=== PATIENT | female | born 1960 | race African-American/Black ===

== ENCOUNTER 2019-06-02 19:35 | Inpatient (IN) | payer MEDICARE, MEDICAID ==
[~2019-06-02] VITALS: Ht 160 cm; Wt 86.9 kg
[2019-06-02] MEDS ORDERED: ONDANSETRON ODT 4 MG TAB PO ONE (20:00)
[2019-06-02 21:14] LABS: Basophils # (auto) 0 uL; Basophils % (auto) 0.7 % (0.0-2.0); Eosinophils # (auto) 0 uL; Eosinophils % (auto) 0.4 % (0.0-7.0); Hematocrit 46.7 % (36.0-46.0); Hemoglobin 15.5 g/dL (12.2-16.2); Lymphocytes # (auto) 0.5 uL; Lymphocytes % (auto) 7.6 % (10.0-50.0); Mean Corpuscular Hemoglobin 28.6 pg (28.0-32.0); Mean Corpuscular Hgb Conc. 33.2 g/dL (32.0-36.0); Mean Corpuscular Volume 86.1 fL (80.0-100.0); Monocytes # (auto) 0.4 uL; Monocytes % (auto) 5.4 % (0.0-12.0); Neutrophils # (auto) 5.8 uL; Neutrophils % (auto) 85.9 % (37.0-80.0); Nucleated Red Blood Cells % 0.1 %; Platelet Count (auto) 265 10^3/uL (140-450); Red Blood Cells 5.42 10^6/uL (4.0-5.20); Red Cell Distribution Width 14.1 % (11.8-14.3); White Blood Cell 6.8 10^3/uL (4.4-10.8)
[2019-06-02 21:28] LABS: Albumin 3.8 g/dL (3.4-5.0); Calcium 9.1 mg/dL (8.5-10.1)
[2019-06-02 21:31] LABS: BUN/Creatinine Ratio 18.3; Bilirubin, Total 1.2 mg/dL (0.2-1.0); Total Protein 8.1 g/dL (6.4-8.2)
[2019-06-02] MEDS ORDERED: cloNIDine HCL 0.1 MG TAB PO ONE (21:45)
[2019-06-02 21:47] LABS: Potassium 2.9 mmol/L (3.5-5.1)
[2019-06-03] MEDS ORDERED: ONDANSETRON HCL 4 MG/2 ML VIAL IV ONE (03:45)
[2019-06-03] MEDS ORDERED: POTASSIUM CHL 20 Meq TABLET PO ONE (03:45)
[2019-06-03] MEDS ORDERED: FAMOTIDINE 20 MG TAB PO ONE (03:45)
[2019-06-03 03:57] LABS: Amylase 44 U/L (25-115); Lipase 51 U/L (73-393)
[2019-06-03] MEDS ORDERED: SODIUM CHLORIDE 0.9% 1,000 ML IV ONE (04:00)
[2019-06-03] MEDS: cefTRIAXone 1GM/50ML D5W 50 ML IV SCH (08:48)
[2019-06-03] MEDS: ACETAMINOPHEN 325 MG TAB PO PRN ×2 (09:00→20:43)
[2019-06-03] MEDS: FAMOTIDINE 20 MG TAB PO SCH ×2 (10:16→22:49)
[2019-06-03] MEDS: HCTZ 25 MG TAB PO SCH (10:17)
[2019-06-03 11:18] LABS: Urine Bacteria FEW /hpf (None Seen); Urine Blood Negative /uL (Negative); Urine Hyaline Cast FEW /lpf (0 - 2); Urine Mucus FEW (None Seen); Urine Specific Gravity 1.033 (1.001-1.035); Urine WBC 2 /hpf (0 - 5)
[2019-06-03 11:22] LABS: Amphetamine Screen, Urine NEGATIVE (NEGATIVE); Benzodiazephine Screen, Urine NEGATIVE (NEGATIVE); Cannabinoid Screen, Urine NEGATIVE (NEGATIVE)
[2019-06-03 11:24] LABS: Barbiturate Scree,Urine NEGATIVE (NEGATIVE); Cocaine Screen, Urine NEGATIVE (NEGATIVE); Opiate Scree,Urine NEGATIVE (NEGATIVE); Phencyclidine Screen, Urine NEGATIVE (NEGATIVE)
[2019-06-03] MEDS: metroNIDAZOLE 500MG/100ML 100 ML IV SCH ×2 (14:20→22:49)
[2019-06-03] MEDS: hydrALAZINE HCL 20 MG/ML VL IV PRN ×2 (20:19→22:49)
--- NOTE | 2019-06-03 21:00 | NUR ---
ADMITTED PATIENT FROM THE ER, AAOX4. NO DISTRESS NOTED. INTRODUCED MYSELF TO THE PATIENT. COMPLAINED OF MILD ABDOMINAL PAIN AND NAUSEA. ROUTINE ADMISSION DONE. POCS DISCUSSED WITH PATIENT AND SHOWED UNDERSTANDING. BED KEPT ON LOWEST POSITION. SIDE RAILS UP. CALL LIGHT/TABLE IN REACH. KEPT COMFORTABLE.
[2019-06-03 22:00] VITALS: BP 177/84
[2019-06-03] MEDS: HYDROcodone-ACET 5/325MG TAB PO PRN (22:50)
[2019-06-03] MEDS: TEMAZEPAM 15 MG CAP PO PRN (22:50)
[2019-06-03] MEDS: ONDANSETRON HCL 4 MG/2 ML VIAL IV PRN (22:50)
[2019-06-04] VITALS (8 sets, daily range): BP systolic 140–177; BP diastolic 63–109
[2019-06-04] MEDS: ONDANSETRON HCL 4 MG/2 ML VIAL IV PRN (02:34)
[2019-06-04] MEDS: metroNIDAZOLE 500MG/100ML 100 ML IV SCH (05:42)
--- NOTE | 2019-06-04 06:08 | NUR ---
ON BED, ASLEEP. STABLE. NO DISTRESS NOTED. FOR MORE CARE AND MANAGEMENT.
--- NOTE | 2019-06-04 07:15 | NUR ---
Opening Shift Note Assumed care of patient, awake and alert. No S/S of distress or SOB. Pt denies any pain at this time,no nausea no vomiting. Bed in lowest and locked position with side rails up x2 and call light within reach. Instructed on POC and to call for assist PRN, will continue to monitor for changes Q1hr and PRN.family at bedside visiting.
[2019-06-04 07:38] LABS: Hematocrit 41.4 % (36.0-46.0); Hemoglobin 13.7 g/dL (12.2-16.2); Mean Corpuscular Hemoglobin 28.8 pg (28.0-32.0); Mean Corpuscular Hgb Conc. 33.1 g/dL (32.0-36.0); Mean Corpuscular Volume 87.1 fL (80.0-100.0); Platelet Count (auto) 179 10^3/uL (140-450); Red Blood Cells 4.76 10^6/uL (4.0-5.20); Red Cell Distribution Width 14.2 % (11.8-14.3); White Blood Cell 9.9 10^3/uL (4.4-10.8)
[2019-06-04 08:01] LABS: Basophils % (manual) 0 (0.0-2.0); Blast Cells 0; Eosinophils % (manual) 0 (0-7); Metamyelocytes % 0; Myelocytes % 0; Promyelocytes % 0; Reactive Lymphocytes 0
[2019-06-04 08:02] LABS: BUN/Creatinine Ratio 15.7; Calcium 8.3 mg/dL (8.5-10.1)
[2019-06-04 08:18] LABS: Potassium 2.7 mmol/L (3.5-5.1)
[2019-06-04 09:07] LABS: Band Neutrophils % (manual) 6; Lymphocytes % (manual) 2 (10.0-50.0); Monocytes % (manual) 5 (0-12)
[2019-06-04] MEDS: cefTRIAXone 1GM/50ML D5W 50 ML IV SCH (10:30)
--- NOTE | 2019-06-04 10:30 | NUR ---
here made aware of potassium level of 2.7
[2019-06-04] MEDS: HCTZ 25 MG TAB PO SCH (10:31)
[2019-06-04] MEDS: FAMOTIDINE 20 MG TAB PO SCH ×2 (10:31→21:42)
[2019-06-04] MEDS: D5W/SOD CHL 0.45%/KCL 40MEQ 1,000 ML IV SCH ×2 (13:16→21:42)
[2019-06-04 13:45] LABS: Calcium 7.9 mg/dL (8.5-10.1); Potassium 3.2 mmol/L (3.5-5.1)
[2019-06-04 13:47] LABS: BUN/Creatinine Ratio 11.7
--- NOTE | 2019-06-04 20:10 | NUR ---
RECEIVED PATIENT IN BED, AAOX4. NO DISTRESS NOTED. INTRODUCED MYSELF TO THE PATIENT. COMPLAINED OF MILD HEADACHE. WILL MEDICATE PATIENT. LEFT AC IV ACCESS IS INFILTRATED. ELEVATED LEFT ARM ON A PILLOW. STARTED A NEW IV ACCESS ON THE RIGHT HAND, GAUGE 22. BENIGN AND PATENT. POCS DISCUSSED WITH PATIENT AND SHOWED UNDERSTANDING. BED KEPT ON LOWEST POSITION. SIDE RAILS UP. CALL LIGHT/TABLE IN REACH. KEPT COMFORTABLE.
[2019-06-04] MEDS: HYDROcodone-ACET 5/325MG TAB PO PRN (21:42)
[2019-06-04] MEDS: TEMAZEPAM 15 MG CAP PO PRN (21:43)
[2019-06-04] MEDS: hydrALAZINE HCL 20 MG/ML VL IV PRN (22:04)
[2019-06-05] VITALS (7 sets, daily range): BP systolic 131–176; BP diastolic 71–96
--- NOTE | 2019-06-05 06:38 | NUR ---
ON BED, ASLEEP. STABLE. NO DISTRESS NOTED. FOR MORE CARE AND MANAGEMENT.
--- NOTE | 2019-06-05 07:15 | NUR ---
Opening Shift Note Assumed care of patient, awake and alert. No S/S of distress or SOB. C/O headache at this time,no nausea no vomiting,no diarrhea. Bed in lowest and locked position with side rails up x2 and call light within reach. Instructed on POC and to call for assist PRN, will continue to monitor for changes Q1hr and PRN.family at bedside visiting.
[2019-06-05] MEDS: D5W/SOD CHL 0.45%/KCL 40MEQ 1,000 ML IV SCH (08:30)
[2019-06-05] MEDS: ACETAMINOPHEN 325 MG TAB PO PRN (08:46)
[2019-06-05] MEDS: HCTZ 25 MG TAB PO SCH (09:32)
[2019-06-05] MEDS: FAMOTIDINE 20 MG TAB PO SCH (09:32)
--- NOTE | 2019-06-05 11:00 | NUR ---
MD VISIT HERE TO SEE AND EXAMINED PATIENT,RECEIVED ORDER FOR DISCHARGE
[2019-06-05] MEDS ORDERED: HYDR-4833 PO (11:15)
[2019-06-05] MEDS ORDERED: POTA1TAB64 PO (11:15)
[2019-06-05] MEDS ORDERED: CLON0.1T PO (11:15)
[2019-06-05] MEDS ORDERED: HYDR25TA4 PO (11:15)
[2019-06-05] MEDS ORDERED: ZOLP10TA PO (11:15)
--- NOTE | 2019-06-05 12:15 | NUR ---
Discharge instructions given as ordered. Encourage to follow up with PMD as instructed. All questions and concerns addressed. Patient verbalized understanding. Medication reconciliation form completed and copy given to patient. IV removed with catheter intact, pressure dressing applied, Patient ambulated stated vehicle is at ER parking stated drove self to ER, with all personal belongings, ,No distress noted at time of departure.
== END 2019-06-05 13:51 | disposition home or self-care (01) | DRG 392 ==
LOC: ER 19:38 → OVERFLOW 19:39 → CENTRAL 06-03 21:58
PROVIDERS: ADMIT Nurse Practitioner; ATTEND Internal Medicine Pulmonary Disease
DX: K52.9 Noninfective gastroenteritis and colitis, unspecified (principal); E87.0 Hyperosmolality and hypernatremia; E86.0 Dehydration; E87.6 Hypokalemia; K57.90 Diverticulosis of intestine, part unspecified, without perforation or abscess without bleeding; Z90.49 Acquired absence of other specified parts of digestive tract; I10 Essential (primary) hypertension
CPT/HCPCS: 36415; 74176; 80048; 80053; 80307; 81001; 82150; 83690; 85007; 85025; 85027; 93005; 94761; 96361; 96365; 96367; 96375; G0378; J0696; J2405; J3490; Q0162

== ENCOUNTER 2019-06-13 13:14 | Emergency (ER) | payer MEDICARE, MEDICAID ==
[~2019-06-13] VITALS: Ht 160 cm; Wt 81.6 kg
[~2019-06-13 13:14] MED LIST: CLON0.1T PO; HYDR-4833 PO; HYDR25TA4 PO; POTA1TAB64 PO; ZOLP10TA PO
[2019-06-13 13:33] VITALS: BP 130/76
[2019-06-13 13:46] LABS: Basophils # (auto) 0.1 uL; Basophils % (auto) 2.1 % (0.0-2.0); Eosinophils # (auto) 0.1 uL; Eosinophils % (auto) 2.7 % (0.0-7.0); Hematocrit 40.8 % (36.0-46.0); Hemoglobin 13.2 g/dL (12.2-16.2); Lymphocytes # (auto) 1.5 uL; Lymphocytes % (auto) 35.2 % (10.0-50.0); Mean Corpuscular Hemoglobin 28.4 pg (28.0-32.0); Mean Corpuscular Hgb Conc. 32.4 g/dL (32.0-36.0); Mean Corpuscular Volume 87.6 fL (80.0-100.0); Monocytes # (auto) 0.4 uL; Monocytes % (auto) 9.6 % (0.0-12.0); Neutrophils # (auto) 2.2 uL; Neutrophils % (auto) 50.4 % (37.0-80.0); Nucleated Red Blood Cells % 0.1 %; Platelet Count (auto) 292 10^3/uL (140-450); Red Blood Cells 4.66 10^6/uL (4.0-5.20); Red Cell Distribution Width 14.5 % (11.8-14.3); White Blood Cell 4.3 10^3/uL (4.4-10.8)
[2019-06-13 13:57] LABS: Urine Bacteria NONE SEEN /hpf (None Seen); Urine Blood Negative /uL (Negative); Urine Mucus FEW (None Seen); Urine Specific Gravity 1.017 (1.001-1.035); Urine WBC 1 /hpf (0 - 5)
[2019-06-13 14:09] LABS: Alanine Aminotransferase 42 U/L (13-56); Albumin 3.4 g/dL (3.4-5.0); Anion Gap 6 (5-15); Aspartate Aminotransferase 23 U/L (15-37); Blood Urea Nitrogen 22 mg/dL (7-18); Calcium 8.8 mg/dL (8.5-10.1); Carbon Dioxide 29 mmol/L (21-32); Chloride 107 mmol/L (98-107); Glucose 83 mg/dL (74-106); Potassium 3.8 mmol/L (3.5-5.1); Sodium 142 mmol/L (136-145)
[2019-06-13 14:14] LABS: Alkaline Phosphatase 59 U/L (45-117); BUN/Creatinine Ratio 22.9; Bilirubin, Total 0.3 mg/dL (0.2-1.0); GFR African American 77 mL/min; GFR Non-African American 64 mL/min; Total Protein 7.1 g/dL (6.4-8.2)
[2019-06-13] MEDS ORDERED: metroNIDAZOLE 500MG/100ML 100 ML IV ONE (15:00)
[2019-06-13] MEDS ORDERED: MORPHINE SULFATE 4 MG/ML SYR/VIAL IV ONE (15:00)
[2019-06-13] MEDS ORDERED: ONDANSETRON HCL 4 MG/2 ML VIAL IV ONE (15:00)
[2019-06-13] MEDS ORDERED: KETOROLAC TROMETH 15 mg/ml 1ML VL IV ONE (16:45)
== END 2019-06-13 15:41 | disposition home or self-care (01) ==
LOC: ER 13:17
DX: K52.9 Noninfective gastroenteritis and colitis, unspecified (principal); Z88.5 Allergy status to narcotic agent; Z79.899 Other long term (current) drug therapy; Z90.49 Acquired absence of other specified parts of digestive tract
CPT/HCPCS: 36415; 74176; 80053; 81001; 84484; 85025; 93005; 96365; 96375; 99284; J1885; J2405; J3490

== ENCOUNTER 2019-06-19 06:27 | Emergency (ER) | payer MEDICARE, MEDICAID ==
[~2019-06-19] VITALS: Ht 160 cm; Wt 81.6 kg
[2019-06-19] MEDS ORDERED: SODIUM CHLORIDE 0.9% 1,000 ML IV ONE (07:23)
[2019-06-19] MEDS ORDERED: KETOROLAC TROMETH 30 MG/ML 1ML VIAL IV ONE (07:30)
[2019-06-19] MEDS ORDERED: PROMETHAZINE HCL 25 MG/ML 1ML IV PRN (07:30)
[2019-06-19 08:13] LABS: Basophils # (auto) 0.1 uL; Basophils % (auto) 1.6 % (0.0-2.0); Eosinophils # (auto) 0.2 uL; Eosinophils % (auto) 3.5 % (0.0-7.0); Hematocrit 40.8 % (36.0-46.0); Hemoglobin 13.4 g/dL (12.2-16.2); Lymphocytes # (auto) 1.6 uL; Lymphocytes % (auto) 37.1 % (10.0-50.0); Mean Corpuscular Hemoglobin 28.9 pg (28.0-32.0); Mean Corpuscular Hgb Conc. 32.9 g/dL (32.0-36.0); Mean Corpuscular Volume 87.6 fL (80.0-100.0); Monocytes # (auto) 0.4 uL; Monocytes % (auto) 8.3 % (0.0-12.0); Neutrophils # (auto) 2.1 uL; Neutrophils % (auto) 49.5 % (37.0-80.0); Nucleated Red Blood Cells % 0.1 %; Platelet Count (auto) 254 10^3/uL (140-450); Red Blood Cells 4.65 10^6/uL (4.0-5.20); Red Cell Distribution Width 14.7 % (11.8-14.3); White Blood Cell 4.3 10^3/uL (4.4-10.8)
[2019-06-19] MEDS ORDERED: IOHEXOL 300 MG/ML 100ML BOTTLE IJ ONE (08:19)
[2019-06-19 08:29] LABS: Potassium 3.3 mmol/L (3.5-5.1)
[2019-06-19 08:38] LABS: Albumin 3.4 g/dL (3.4-5.0); BUN/Creatinine Ratio 25.3; Bilirubin, Total 0.7 mg/dL (0.2-1.0); Magnesium 2.5 mg/dL (1.6-2.6); Total Protein 7.4 g/dL (6.4-8.2)
[2019-06-19] MEDS ORDERED: LABETALOL HCL 5 MG/ML ML 20ML VIAL IV ONE (10:30)
[2019-06-19 10:52] LABS: Urine Bacteria NONE SEEN /hpf (None Seen); Urine Blood Negative /uL (Negative); Urine Specific Gravity 1.017 (1.001-1.035); Urine WBC <1 /hpf (0 - 5)
[2019-06-19 11:07] VITALS: BP 156/89
== END 2019-06-19 11:27 | disposition home or self-care (01) ==
LOC: ER 06:36
DX: K59.8 Other specified functional intestinal disorders (principal); E87.6 Hypokalemia; E44.1 Mild protein-calorie malnutrition; I10 Essential (primary) hypertension; Z68.31 Body mass index [BMI] 31.0-31.9, adult; Z90.49 Acquired absence of other specified parts of digestive tract; Z88.6 Allergy status to analgesic agent
CPT/HCPCS: 36415; 71046; 74177; 80053; 81001; 83690; 83735; 84443; 85025; 93005; 96374; 96375; 99284; J1885; J2550; J7030; Q9967

== ENCOUNTER 2020-02-05 17:23 | Emergency (ER) | payer MEDICARE, MEDICAID ==
[~2020-02-05] VITALS: Ht 160 cm; Wt 84.8 kg
[2020-02-05] MEDS ORDERED: SODIUM CHLORIDE 0.9% 1,000 ML IVB ONE (18:04)
[2020-02-05 18:17] LABS: Basophils # (auto) 0.1 10 ^3/uL (0-0.2); Basophils % (auto) 1.4 % (0.0-2.0); Eosinophils # (auto) 0.2 10 ^3/uL (0-0.8); Hematocrit 41.6 % (36.0-46.0); Lymphocytes # (auto) 1.5 10 ^3/uL (0.4-5.4); Lymphocytes % (auto) 42.9 % (10.0-50.0); Mean Corpuscular Hemoglobin 28.9 pg (28.0-32.0); Mean Corpuscular Hgb Conc. 33.7 g/dL (32.0-36.0); Mean Corpuscular Volume 85.9 fL (80.0-100.0); Monocytes # (auto) 0.3 10 ^3/uL (0-1.3); Monocytes % (auto) 7.4 % (0.0-12.0); Neutrophils # (auto) 1.5 10 ^3/uL (1.6-8.6); Neutrophils % (auto) 42.3 % (37.0-80.0); Nucleated Red Blood Cells % 0.1 %; Platelet Count (auto) 220 10^3/uL (140-450); Red Blood Cells 4.84 10^6/uL (4.0-5.20); Red Cell Distribution Width 14.1 % (11.8-14.3); White Blood Cell 3.6 10^3/uL (4.4-10.8)
[2020-02-05 18:22] LABS: Urine Bacteria NONE SEEN /hpf (None Seen); Urine Blood Negative /uL (Negative); Urine Specific Gravity 1.009 (1.001-1.035); Urine WBC <1 /hpf (0 - 5)
[2020-02-05 18:33] LABS: Albumin 3.6 g/dL (3.4-5.0); Anion Gap 6 (5-15); Blood Urea Nitrogen 19 mg/dL (7-18); Calcium 8.6 mg/dL (8.5-10.1); Carbon Dioxide 30 mmol/L (21-32); Chloride 103 mmol/L (98-107); Glucose 82 mg/dL (74-106); Sodium 139 mmol/L (136-145)
[2020-02-05 18:35] LABS: Magnesium 1.8 mg/dL (1.6-2.6)
[2020-02-05 18:39] LABS: Alanine Aminotransferase 25 U/L (13-56); Alkaline Phosphatase 76 U/L (45-117); Aspartate Aminotransferase 20 U/L (15-37); BUN/Creatinine Ratio 16.8; Bilirubin, Total 0.6 mg/dL (0.2-1.0); GFR African American 64 mL/min; GFR Non-African American 53 mL/min; Total Protein 7.6 g/dL (6.4-8.2)
[2020-02-05 18:42] LABS: Potassium 2.9 mmol/L (3.5-5.1)
[2020-02-05] MEDS ORDERED: ONDANSETRON HCL 4 MG/2 ML VIAL IV ONE (18:45)
[2020-02-05] MEDS ORDERED: MEPERIDINE HCL (25 MG/ML) 1ML VIAL IV ONE (18:45)
[2020-02-05] MEDS ORDERED: POTASSIUM CHL 20 Meq TABLET PO ONE ×2 (19:45)
[2020-02-05 22:00] VITALS: BP 169/81
== END 2020-02-05 22:41 | disposition home or self-care (01) ==
LOC: ER 17:23
DX: K59.00 Constipation, unspecified (principal); E87.6 Hypokalemia; I10 Essential (primary) hypertension; Z90.49 Acquired absence of other specified parts of digestive tract; Z88.6 Allergy status to analgesic agent
CPT/HCPCS: 36415; 71045; 74176; 80053; 81001; 83690; 83735; 84484; 85025; 93005; 96374; 96375; 99285; J2175; J2405; J7030

== ENCOUNTER 2021-04-28 10:13 | Inpatient (IN) | payer MEDICARE, MEDICAID ==
[~2021-04-28] VITALS: Ht 157.5 cm; Wt 86.7 kg
[2021-04-28 10:54] LABS: Urine Bacteria NONE SEEN /hpf (None Seen); Urine Blood Negative /uL (Negative); Urine Specific Gravity 1.004 (1.001-1.035); Urine WBC <1 /hpf (0 - 5)
[2021-04-28 10:58] LABS: Basophils # (auto) 0.1 10 ^3/uL (0-0.2); Basophils % (auto) 2.1 % (0.0-2.0); Eosinophils # (auto) 0.1 10 ^3/uL (0-0.8); Eosinophils % (auto) 3.6 % (0.0-7.0); Hematocrit 39.5 % (36.0-46.0); Hemoglobin 13.1 g/dL (12.2-16.2); Lymphocytes # (auto) 1.3 10 ^3/uL (0.4-5.4); Lymphocytes % (auto) 33.8 % (10.0-50.0); Mean Corpuscular Hemoglobin 28.7 pg (28.0-32.0); Mean Corpuscular Hgb Conc. 33.2 g/dL (32.0-36.0); Mean Corpuscular Volume 86.3 fL (80.0-100.0); Monocytes # (auto) 0.4 10 ^3/uL (0-1.3); Monocytes % (auto) 10.1 % (0.0-12.0); Neutrophils # (auto) 1.9 10 ^3/uL (1.6-8.6); Neutrophils % (auto) 50.4 % (37.0-80.0); Red Blood Cells 4.57 10^6/uL (4.0-5.20); Red Cell Distribution Width 14.3 % (11.8-14.3); White Blood Cell 3.8 10^3/uL (4.4-10.8)
[2021-04-28 11:21] LABS: Albumin 3.4 g/dL (3.4-5.0); Anion Gap 7 (5-15); Blood Urea Nitrogen 15 mg/dL (7-18); Calcium 8.8 mg/dL (8.5-10.1); Carbon Dioxide 31 mmol/L (21-32); Chloride 103 mmol/L (98-107); Glucose 79 mg/dL (74-106); Potassium 3.1 mmol/L (3.5-5.1); Sodium 141 mmol/L (136-145)
[2021-04-28 11:27] LABS: Alanine Aminotransferase 27 U/L (13-56); Alkaline Phosphatase 72 U/L (45-117); Aspartate Aminotransferase 18 U/L (15-37); Bilirubin, Total 0.5 mg/dL (0.2-1.0); GFR African American 102 mL/min; GFR Non-African American 84 mL/min
[2021-04-28] MEDS ORDERED: POTASSIUM EFFERVESENT TAB 25 MEQ PO ONE (11:45)
[2021-04-28] MEDS ORDERED: ASPirin 81 mg TAB PO ONE (11:45)
[2021-04-28] MEDS ORDERED: LABETALOL HCL 5 MG/ML 4ML SYRINGE IV ONE (12:15)
[2021-04-28] MEDS ORDERED: hydrALAZINE HCL 20 MG/ML VL IV ONE ×2 (12:30→21:45)
[2021-04-28] MEDS ORDERED: ONDANSETRON HCL 4 MG/2 ML VIAL IV ONE (12:30)
[2021-04-28] MEDS ORDERED: ACETAMINOPHEN 500 MG TAB PO ONE ×2 (13:18→13:30)
[2021-04-28] MEDS ORDERED: NITROGLYCERIN 0.4 MG SL TAB SL PRN (16:30)
[2021-04-28] MEDS ORDERED: hydrALAZINE HCL 20 MG/ML VL IV PRN (16:30)
[2021-04-28] MEDS ORDERED: HYDROcodone-ACET 5/325MG TAB PO PRN (16:30)
[2021-04-28] MEDS ORDERED: ACETAMINOPHEN 500 MG TAB PO PRN (16:30)
[2021-04-28] MEDS ORDERED: ONDANSETRON HCL 4 MG/2 ML VIAL IV PRN (16:30)
[2021-04-28] MEDS: HYDROmorphone HCL 2 MG/ML VL IV PRN ×2 (18:13→22:52)
[2021-04-28 21:40] VITALS: BP 182/97
[2021-04-28] MEDS: ATORVASTATIN 20 MG TAB PO SCH (21:43)
[2021-04-28] MEDS: METOPROLOL TARTRATE 25 MG TAB PO SCH (21:44)
[2021-04-29 00:15] VITALS: BP 138/71
[2021-04-29] MEDS ORDERED: METH10TA6 PO (01:16)
[2021-04-29 05:00] VITALS: BP 105/66
[2021-04-29 09:12] VITALS: BP 122/83
[2021-04-29] MEDS: METOPROLOL TARTRATE 25 MG TAB PO SCH (10:00)
[2021-04-29] MEDS: ASPirin-EC 81 mg tab PO SCH (10:46)
[2021-04-29] MEDS: FAMOTIDINE 20 MG TAB PO SCH (10:46)
[2021-04-29] MEDS: LISINOPRIL 10 MG TAB PO SCH (10:47)
[2021-04-29] MEDS ORDERED: ADENOSINE 71 MG in GIVE UN-DILUTED 0 ML IV STA (11:58)
[2021-04-29 13:00] VITALS: BP 153/82
[2021-04-29] MEDS: HYDROmorphone HCL 2 MG/ML VL IV PRN (14:22)
[2021-04-29 16:41] VITALS: BP 142/78
[2021-04-29 21:57] VITALS: BP 139/77
[2021-04-29] MEDS: ATORVASTATIN 20 MG TAB PO SCH (22:12)
[2021-04-30 05:00] VITALS: BP 136/72
[2021-04-30 06:02] LABS: Cholesterol 109 mg/dL (< 200); HDL Cholesterol 52 mg/dL (40-59); LDL Cholesterol 51 mg/dL (< 100); Triglycerides 91 mg/dL (< 150)
[2021-04-30 09:00] VITALS: BP 137/79
[2021-04-30] MEDS: ASPirin-EC 81 mg tab PO SCH (09:22)
[2021-04-30] MEDS: FAMOTIDINE 20 MG TAB PO SCH (09:23)
[2021-04-30] MEDS: LISINOPRIL 10 MG TAB PO SCH (09:23)
[2021-04-30] MEDS ORDERED: HYDR50TA15 PO (10:44)
[2021-04-30] MEDS ORDERED: LISI-716 PO (10:44)
[2021-04-30 11:13] VITALS: BP 135/79
== END 2021-04-30 12:34 | disposition home or self-care (01) | DRG 206 ==
LOC: ER 10:13 → TELE 16:28 → TELE-WESTW 21:25
PROVIDERS: ADMIT Nurse Practitioner Acute Care; ATTEND Internal Medicine
DX: M94.0 Chondrocostal junction syndrome [Tietze] (principal); I10 Essential (primary) hypertension; E87.6 Hypokalemia; E66.9 Obesity, unspecified; R00.1 Bradycardia, unspecified; G44.40 Drug-induced headache, not elsewhere classified, not intractable; T46.3X5A Adverse effect of coronary vasodilators, initial encounter; T46.5X5A Adverse effect of other antihypertensive drugs, initial encounter; Z20.822 Contact with and (suspected) exposure to COVID-19; Z68.33 Body mass index [BMI] 33.0-33.9, adult; Z88.5 Allergy status to narcotic agent; Z82.49 Family history of ischemic heart disease and other diseases of the circulatory system
CPT/HCPCS: 36415; 71045; 78452; 80053; 80061; 81001; 83735; 84132; 84439; 84443; 84484; 85025; 85049; 85379; 87426; 93005; 93017; 93306; G0378; J0153; J2405

== ENCOUNTER 2021-11-05 09:24 | Emergency (ER) | payer MEDICARE, MEDICAID ==
[~2021-11-05] VITALS: Ht 160 cm; Wt 81.6 kg
[~2021-11-05 09:24] MED LIST changes: -CLON0.1T PO; +HYDR50TA15 PO; +LISI-716 PO; +METH10TA6 PO
[2021-11-05 11:22] VITALS: BP 150/86
== END 2021-11-05 12:45 | disposition home or self-care (01) ==
LOC: ER 09:24
DX: J11.1 Influenza due to unidentified influenza virus with other respiratory manifestations (principal); R51.9 Headache, unspecified; Z90.49 Acquired absence of other specified parts of digestive tract
CPT/HCPCS: 71045

== ENCOUNTER 2022-01-30 07:09 | Emergency (ER) | payer MEDICARE, MEDICAID ==
[~2022-01-30] VITALS: Ht 160 cm; Wt 81.6 kg
[2022-01-30 07:47] VITALS: BP 174/94
[2022-01-30] MEDS ORDERED: KETOROLAC TROMETH 60MG/2ML VIAL IM ONE (08:15)
[2022-01-30] MEDS ORDERED: TRAM-297 PO (10:36)
== END 2022-01-30 10:43 | disposition home or self-care (01) ==
LOC: ER 07:09
DX: G89.29 Other chronic pain (principal); M25.561 Pain in right knee; I10 Essential (primary) hypertension; Z90.49 Acquired absence of other specified parts of digestive tract
CPT/HCPCS: 93971; 96372; 99284; J1885

== ENCOUNTER 2022-08-17 07:04 | Emergency (ER) | payer MEDICARE, MEDICAID ==
[~2022-08-17] VITALS: Ht 160 cm; Wt 80.5 kg
[~2022-08-17 07:04] MED LIST changes: +TRAM-297 PO
[2022-08-17 08:30] VITALS: BP 136/86
[2022-08-17] MEDS ORDERED: PRED20TA2 PO (08:36)
[2022-08-17] MEDS ORDERED: AMOX-277 PO (08:36)
[2022-08-17] MEDS ORDERED: PROM1SOL4 PO (08:36)
[2022-08-17] MEDS ORDERED: cefTRIAXone SOD 1,000 MG VL IM ONE (08:45)
== END 2022-08-17 09:15 | disposition home or self-care (01) ==
LOC: ER 07:04
DX: J03.90 Acute tonsillitis, unspecified (principal); J01.90 Acute sinusitis, unspecified; I10 Essential (primary) hypertension; Z90.49 Acquired absence of other specified parts of digestive tract; Z88.6 Allergy status to analgesic agent
CPT/HCPCS: 71046; 96372; 99283; J0696

== ENCOUNTER 2022-11-27 07:51 | Inpatient (IN) | payer MEDICARE, MEDICAID ==
[~2022-11-27] VITALS: Ht 160 cm; Wt 79.3 kg
[~2022-11-27 07:51] MED LIST changes: +AMOX-277 PO; +PRED20TA2 PO; +PROM1SOL4 PO
[2022-11-27 08:21] LABS: Basophils # (auto) 0.1 10 ^3/uL (0-0.2); Basophils % (auto) 2.7 % (0.0-2.0); Eosinophils # (auto) 0.1 10 ^3/uL (0-0.8); Eosinophils % (auto) 3.5 % (0.0-7.0); Hematocrit 41.7 % (36.0-46.0); Hemoglobin 13.5 g/dL (12.2-16.2); Lymphocytes # (auto) 1.2 10 ^3/uL (0.4-5.4); Lymphocytes % (auto) 33.3 % (10.0-50.0); Mean Corpuscular Hemoglobin 28.2 pg (28.0-32.0); Mean Corpuscular Hgb Conc. 32.3 g/dL (32.0-36.0); Mean Corpuscular Volume 87.3 fL (80.0-100.0); Monocytes # (auto) 0.3 10 ^3/uL (0-1.3); Monocytes % (auto) 8.2 % (0.0-12.0); Neutrophils # (auto) 1.9 10 ^3/uL (1.6-8.6); Neutrophils % (auto) 52.3 % (37.0-80.0); Red Blood Cells 4.77 10^6/uL (4.0-5.20); Red Cell Distribution Width 14.6 % (11.8-14.3); White Blood Cell 3.6 10^3/uL (4.4-10.8)
[2022-11-27 08:41] LABS: Albumin 3.7 g/dL (3.4-5.0); Calcium 8.8 mg/dL (8.5-10.1)
[2022-11-27 08:44] LABS: BUN/Creatinine Ratio 22.1; Bilirubin, Total 0.5 mg/dL (0.2-1.0); Total Protein 6.8 g/dL (6.4-8.2)
[2022-11-27 08:58] LABS: Potassium 2.9 mmol/L (3.5-5.1)
[2022-11-27 09:36] LABS: Urine Bacteria NONE SEEN /hpf (None Seen); Urine Blood Negative /uL (Negative); Urine Mucus FEW (None Seen); Urine Specific Gravity 1.025 (1.001-1.035); Urine WBC 1 /hpf (0 - 5)
[2022-11-27] MEDS ORDERED: POTASSIUM CHL 20MEQ/100ML 100 ML IV ONE (11:15)
[2022-11-27] MEDS ORDERED: POTASSIUM EFFERVESENT TAB 25 MEQ PO ONE (11:15)
[2022-11-27] MEDS ORDERED: ENOXAPARIN SOD 100 MG/1 ML SYRINGE SC ONE (12:15)
[2022-11-27] MEDS ORDERED: HYDROcodone-ACET 5/325MG TAB PO ONE (13:30)
[2022-11-27] MEDS ORDERED: IOHEXOL 350 MG/ML 100ML IJ ONE (14:27)
[2022-11-27] MEDS ORDERED: MORPHINE SULFATE INJ 2 MG/ml SYRG IV PRN (14:30)
[2022-11-27] MEDS ORDERED: ACETAMINOPHEN 325 MG TAB PO PRN (14:30)
[2022-11-27] MEDS ORDERED: PANTOPRAZOLE 40 MG/10 ML VIAL INJ IV ONE (14:30)
[2022-11-27] MEDS ORDERED: NITROGLYCERIN 0.4 MG SL TAB SL PRN (14:30)
[2022-11-27] MEDS: SODIUM CHLORIDE 0.9% 1,000 ML IV SCH (15:16)
[2022-11-27 15:21] LABS: Cholesterol 151 mg/dL (< 200)
[2022-11-27 15:23] LABS: HDL Cholesterol 78 mg/dL (40-59); LDL Cholesterol 71 mg/dL (< 100); Triglycerides 88 mg/dL (< 150)
[2022-11-27] MEDS ORDERED: KETOROLAC TROMETH 30 MG/ML 1ML VIAL IV ONE (21:00)
[2022-11-27] MEDS ORDERED: KETOROLAC TROMETH 30 MG/ML 1ML VIAL IV PRN (21:00)
[2022-11-27 21:53] LABS: Basophils # (auto) 0 10 ^3/uL (0-0.2); Basophils % (auto) 1.1 % (0.0-2.0); Eosinophils # (auto) 0 10 ^3/uL (0-0.8); Eosinophils % (auto) 1.1 % (0.0-7.0); Hematocrit 40.8 % (36.0-46.0); Hemoglobin 13.1 g/dL (12.2-16.2); Lymphocytes # (auto) 1.6 10 ^3/uL (0.4-5.4); Lymphocytes % (auto) 37.8 % (10.0-50.0); Mean Corpuscular Hemoglobin 28.4 pg (28.0-32.0); Mean Corpuscular Volume 88.8 fL (80.0-100.0); Monocytes # (auto) 0.3 10 ^3/uL (0-1.3); Monocytes % (auto) 7.3 % (0.0-12.0); Neutrophils # (auto) 2.2 10 ^3/uL (1.6-8.6); Neutrophils % (auto) 52.7 % (37.0-80.0); Nucleated Red Blood Cells % 0.3 %; Red Cell Distribution Width 14.5 % (11.8-14.3); White Blood Cell 4.3 10^3/uL (4.4-10.8)
[2022-11-27 22:07] LABS: INR 1.03 (0.9-1.15)
[2022-11-27] MEDS: methIMAzole 5 MG TAB PO SCH (22:48)
[2022-11-27] MEDS ORDERED: HEPARIN DRIP/D5W 100UNITS/ML 250 ML IV SCH (23:00)
[2022-11-28] MEDS ORDERED: TEMAZEPAM 15 MG CAP PO ONE (01:30)
[2022-11-28] MEDS ORDERED: ONDANSETRON HCL 4 MG/2 ML VIAL IV ONE (02:15)
[2022-11-28] MEDS ORDERED: MORPHINE SULFATE 4 MG/ML SYR/VIAL IV ONE (02:15)
[2022-11-28 06:30] LABS: Albumin 3.2 g/dL (3.4-5.0); Calcium 8.8 mg/dL (8.5-10.1); Potassium 3.1 mmol/L (3.5-5.1)
[2022-11-28 06:32] LABS: BUN/Creatinine Ratio 22.2
[2022-11-28 06:34] LABS: Bilirubin, Total 0.7 mg/dL (0.2-1.0); Total Protein 6.6 g/dL (6.4-8.2)
[2022-11-28 07:16] LABS: Partial Thromboplastin Time > 139.0 sec (24.6-33.4)
[2022-11-28 07:17] LABS: INR 1.08 (0.9-1.15)
[2022-11-28] MEDS ORDERED: HEPARIN DRIP/D5W 100UNITS/ML 250 ML IV SCH (09:15)
[2022-11-28] MEDS: SODIUM CHLORIDE 0.9% 1,000 ML IV SCH (09:15)
[2022-11-28] MEDS ORDERED: LISINOPRIL 10 MG TAB PO SCH (10:00)
[2022-11-28] MEDS ORDERED: PANTOPRAZOLE 40 MG/10 ML VIAL INJ IV SCH (10:00)
[2022-11-28] MEDS ORDERED: HCTZ 25 MG TAB PO SCH (10:00)
[2022-11-28] MEDS: methIMAzole 5 MG TAB PO SCH (10:05)
[2022-11-28 15:03] VITALS: BP 145/68
[2022-11-28 15:04] VITALS: BP 145/68
[2022-11-28] MEDS ORDERED: APIX5TAB4 PO (16:46)
[2022-11-28] MEDS ORDERED: APIXABAN 5 MG TAB PO SCH (17:15)
== END 2022-11-28 18:10 | disposition home or self-care (01) | DRG 301 ==
LOC: ER 07:51 → TELE 14:32 → TELE-E-ADS 11-28 15:04 → TELE-CENTR 11-28 17:11
PROVIDERS: ADMIT Nurse Practitioner Family; ATTEND Student in an Organized Health Care Education/Training Program
PROC: 05HC33Z Insertion of Infusion Device into Left Basilic Vein, Percutaneous Approach (ICD-10-PCS; principal; 2022-11-28)
PROC: B54NZZA Ultrasonography of Left Upper Extremity Veins, Guidance (ICD-10-PCS; 2022-11-28)
DX: I82.C11 Acute embolism and thrombosis of right internal jugular vein (principal); I82.A11 Acute embolism and thrombosis of right axillary vein; I82.621 Acute embolism and thrombosis of deep veins of right upper extremity; E05.00 Thyrotoxicosis with diffuse goiter without thyrotoxic crisis or storm; E66.01 Morbid (severe) obesity due to excess calories; I10 Essential (primary) hypertension; E87.6 Hypokalemia; Z20.822 Contact with and (suspected) exposure to COVID-19; Z82.49 Family history of ischemic heart disease and other diseases of the circulatory system; Z87.440 Personal history of urinary (tract) infections; Z90.49 Acquired absence of other specified parts of digestive tract
CPT/HCPCS: 36415; 71045; 71275; 80053; 80061; 81001; 83036; 83735; 84132; 84443; 84484; 85025; 85610; 85730; 87426; 93005; 93306; 93970; 93971; 96361; 96365; 96366; 96367; 96372; 96375; 96376; C9113; G0378; J1885; J2405; J3480

== ENCOUNTER 2022-12-08 21:26 | Inpatient (IN) | payer MEDICARE, MEDICAID ==
[~2022-12-08] VITALS: Ht 160 cm; Wt 79.5 kg
[~2022-12-08 21:26] MED LIST changes: +APIX5TAB4 PO
[2022-12-08 22:00] LABS: Basophils # (auto) 0.1 10 ^3/uL (0-0.2); Basophils % (auto) 1.9 % (0.0-2.0); Eosinophils # (auto) 0.1 10 ^3/uL (0-0.8); Eosinophils % (auto) 2.3 % (0.0-7.0); Hematocrit 39.4 % (36.0-46.0); Hemoglobin 13.2 g/dL (12.2-16.2); Lymphocytes # (auto) 1.9 10 ^3/uL (0.4-5.4); Lymphocytes % (auto) 35.7 % (10.0-50.0); Mean Corpuscular Hemoglobin 29.4 pg (28.0-32.0); Mean Corpuscular Hgb Conc. 33.4 g/dL (32.0-36.0); Monocytes # (auto) 0.4 10 ^3/uL (0-1.3); Monocytes % (auto) 8.2 % (0.0-12.0); Neutrophils # (auto) 2.7 10 ^3/uL (1.6-8.6); Neutrophils % (auto) 51.9 % (37.0-80.0); Nucleated Red Blood Cells % 0.1 %; Red Blood Cells 4.48 10^6/uL (4.0-5.20); Red Cell Distribution Width 14.3 % (11.8-14.3); White Blood Cell 5.2 10^3/uL (4.4-10.8)
[2022-12-08 22:09] LABS: INR 1.12 (0.9-1.15); Partial Thromboplastin Time 33.9 sec (24.6-33.4)
[2022-12-08 22:12] LABS: Albumin 3.5 g/dL (3.4-5.0); BUN/Creatinine Ratio 17.6; Calcium 8.9 mg/dL (8.5-10.1); Magnesium 2.2 mg/dL (1.6-2.6)
[2022-12-08 22:15] LABS: Bilirubin, Total 0.4 mg/dL (0.2-1.0); Total Protein 7.3 g/dL (6.4-8.2)
[2022-12-08 22:24] LABS: Potassium 2.9 mmol/L (3.5-5.1)
[2022-12-08] MEDS ORDERED: POTASSIUM CHL 20MEQ/100ML 100 ML IV ONE (23:00)
[2022-12-08] MEDS ORDERED: POTASSIUM CHL 20 Meq TABLET PO ONE (23:00)
[2022-12-09] MEDS ORDERED: HYDROmorphone HCL 2 MG/ML VL/or syr IV ONE (00:45)
[2022-12-09] MEDS ORDERED: ONDANSETRON HCL 4 MG/2 ML VIAL IV ONE (00:45)
[2022-12-09 04:40] LABS: Urine Bacteria NONE SEEN /hpf (None Seen); Urine Blood Negative /uL (Negative); Urine Specific Gravity 1.007 (1.001-1.035); Urine WBC 1 /hpf (0 - 5)
[2022-12-09] MEDS ORDERED: ACETAMINOPHEN 325 MG TAB PO PRN (05:15)
[2022-12-09] MEDS ORDERED: DOCUSATE SOD 100 MG CAP PO PRN (05:15)
[2022-12-09] MEDS ORDERED: hydrALAZINE HCL 20 MG/ML VL IV PRN (05:15)
[2022-12-09] MEDS ORDERED: ONDANSETRON HCL 4 MG/2 ML VIAL IV PRN (05:15)
[2022-12-09] MEDS ORDERED: NITROGLYCERIN 0.4 MG SL TAB SL PRN (05:15)
[2022-12-09] MEDS ORDERED: MORPHINE SULFATE INJ 2 MG/ml SYRG IV PRN (05:15)
[2022-12-09] MEDS ORDERED: HYDROcodone-ACET 5/325MG TAB PO PRN (05:15)
[2022-12-09 06:18] LABS: Basophils # (auto) 0.1 10 ^3/uL (0-0.2); Basophils % (auto) 1.8 % (0.0-2.0); Eosinophils # (auto) 0.1 10 ^3/uL (0-0.8); Eosinophils % (auto) 2.6 % (0.0-7.0); Hematocrit 40.4 % (36.0-46.0); Hemoglobin 13.2 g/dL (12.2-16.2); Lymphocytes # (auto) 1.6 10 ^3/uL (0.4-5.4); Lymphocytes % (auto) 34.4 % (10.0-50.0); Mean Corpuscular Hemoglobin 29.1 pg (28.0-32.0); Mean Corpuscular Hgb Conc. 32.6 g/dL (32.0-36.0); Mean Corpuscular Volume 89.2 fL (80.0-100.0); Monocytes # (auto) 0.4 10 ^3/uL (0-1.3); Monocytes % (auto) 8.8 % (0.0-12.0); Neutrophils # (auto) 2.5 10 ^3/uL (1.6-8.6); Neutrophils % (auto) 52.4 % (37.0-80.0); Nucleated Red Blood Cells % 0.1 %; Red Blood Cells 4.53 10^6/uL (4.0-5.20); Red Cell Distribution Width 14.6 % (11.8-14.3); White Blood Cell 4.7 10^3/uL (4.4-10.8)
[2022-12-09 06:41] LABS: Potassium 4.1 mmol/L (3.5-5.1)
[2022-12-09 06:51] LABS: Albumin 3.5 g/dL (3.4-5.0); Bilirubin, Total 0.6 mg/dL (0.2-1.0); Calcium 8.6 mg/dL (8.5-10.1); Total Protein 6.8 g/dL (6.4-8.2)
[2022-12-09] MEDS: SODIUM CHLOR 0.9% PF (SALINE LOCK) 10ML VIAL/SYR IV SCH ×2 (07:02→13:42)
[2022-12-09] MEDS ORDERED: APIXABAN 5 MG TAB PO SCH (10:00)
[2022-12-09] MEDS ORDERED: ASPirin 81 mg TAB PO SCH (10:00)
[2022-12-09] MEDS ORDERED: FAMOTIDINE (10MG/ML) 2ML VL IV SCH (10:00)
[2022-12-09] MEDS ORDERED: POTA10TA51 PO (14:37)
[2022-12-09 14:54] VITALS: BP 140/83
== END 2022-12-09 14:54 | disposition home or self-care (01) | DRG 641 ==
LOC: ER 21:26 → TELE 12-09 05:23
PROVIDERS: ADMIT Nurse Practitioner Family; ATTEND Student in an Organized Health Care Education/Training Program
DX: E87.6 Hypokalemia (principal); I82.621 Acute embolism and thrombosis of deep veins of right upper extremity; Z20.822 Contact with and (suspected) exposure to COVID-19; I10 Essential (primary) hypertension; Z82.49 Family history of ischemic heart disease and other diseases of the circulatory system; Z90.49 Acquired absence of other specified parts of digestive tract; Z88.6 Allergy status to analgesic agent
CPT/HCPCS: 36415; 71045; 80053; 81001; 83735; 83880; 84484; 85025; 85610; 85730; 87426; 93005; 96365; 96366; 96375; G0378; J2405; J3480; J3490

== ENCOUNTER 2022-12-15 21:39 | Emergency (ER) | payer MEDICARE, MEDICAID ==
[~2022-12-15] VITALS: Ht 160 cm; Wt 81.2 kg
[~2022-12-15 21:39] MED LIST changes: +POTA10TA51 PO
[2022-12-15 22:41] LABS: Basophils # (auto) 0.1 10 ^3/uL (0-0.2); Basophils % (auto) 1.9 % (0.0-2.0); Eosinophils # (auto) 0.2 10 ^3/uL (0-0.8); Eosinophils % (auto) 4.3 % (0.0-7.0); Hematocrit 42.1 % (36.0-46.0); Hemoglobin 13.9 g/dL (12.2-16.2); Lymphocytes # (auto) 1.6 10 ^3/uL (0.4-5.4); Lymphocytes % (auto) 30.6 % (10.0-50.0); Mean Corpuscular Hemoglobin 29.5 pg (28.0-32.0); Mean Corpuscular Volume 89.3 fL (80.0-100.0); Monocytes # (auto) 0.5 10 ^3/uL (0-1.3); Monocytes % (auto) 8.5 % (0.0-12.0); Neutrophils # (auto) 2.9 10 ^3/uL (1.6-8.6); Neutrophils % (auto) 54.7 % (37.0-80.0); Nucleated Red Blood Cells % 0.1 %; Red Blood Cells 4.71 10^6/uL (4.0-5.20); Red Cell Distribution Width 14.6 % (11.8-14.3); White Blood Cell 5.4 10^3/uL (4.4-10.8)
[2022-12-15] MEDS ORDERED: ASPirin 325 MG TAB PO ONE (22:45)
[2022-12-15 22:55] LABS: Albumin 3.7 g/dL (3.4-5.0); Potassium 3.6 mmol/L (3.5-5.1)
[2022-12-15 22:57] LABS: BUN/Creatinine Ratio 22.4
[2022-12-15 23:00] LABS: Bilirubin, Total 0.3 mg/dL (0.2-1.0); Total Protein 7.1 g/dL (6.4-8.2)
[2022-12-15] MEDS ORDERED: ACETAMINOPHEN 500 MG TAB PO ONE (23:45)
[2022-12-16 02:04] LABS: INR 0.95 (0.9-1.15); Partial Thromboplastin Time 28.9 sec (24.6-33.4)
[2022-12-16] MEDS ORDERED: DOXY-340 PO (02:25)
[2022-12-16] MEDS ORDERED: HYDR2TAB58 PO (02:25)
[2022-12-16 03:15] VITALS: BP 198/89
== END 2022-12-16 03:17 | disposition home or self-care (01) ==
LOC: ER 21:39
DX: L03.113 Cellulitis of right upper limb (principal); I10 Essential (primary) hypertension; Z90.49 Acquired absence of other specified parts of digestive tract; Z88.1 Allergy status to other antibiotic agents
CPT/HCPCS: 36415; 71045; 80053; 83605; 83880; 84484; 85025; 85379; 85610; 85730; 87040; 93005; 93971

== ENCOUNTER 2023-10-05 12:25 | Inpatient (IN) | payer MEDICARE, MEDICAID ==
[~2023-10-05] VITALS: Ht 160 cm; Wt 87.5 kg
[~2023-10-05 12:25] MED LIST changes: -AMOX-277 PO; +AMOX875T4 PO; +DOXY1CAP57 PO; +HYDR-4297 PO; +HYDR2TAB58 PO; -HYDR50TA15 PO; -LISI-716 PO; +LISI10TA34 PO; +METH-552 PO; -METH10TA6 PO
[2023-10-05 13:31] LABS: Urine WBC None Seen /hpf (0 - 5)
[2023-10-05] MEDS ORDERED: LABETALOL HCL 5 MG/ML 4ML SYRINGE IV ONE ×2 (13:45→19:00)
[2023-10-05 13:53] LABS: Basophils # (auto) 0.1 10 ^3/uL (0-0.2); Basophils % (auto) 1.2 % (0.0-2.0); Eosinophils # (auto) 0.4 10 ^3/uL (0-0.8); Eosinophils % (auto) 7.9 % (0.0-7.0); Hematocrit 44.1 % (36.0-46.0); Hemoglobin 14.4 g/dL (12.2-16.2); Lymphocytes # (auto) 1.9 10 ^3/uL (0.4-5.4); Lymphocytes % (auto) 41.3 % (10.0-50.0); Mean Corpuscular Hemoglobin 28.5 pg (28.0-32.0); Mean Corpuscular Hgb Conc. 32.6 g/dL (32.0-36.0); Mean Corpuscular Volume 87.4 fL (80.0-100.0); Monocytes # (auto) 0.4 10 ^3/uL (0-1.3); Monocytes % (auto) 8.5 % (0.0-12.0); Neutrophils # (auto) 1.8 10 ^3/uL (1.6-8.6); Neutrophils % (auto) 41.1 % (37.0-80.0); Nucleated Red Blood Cells % 0.2 %; Red Blood Cells 5.05 10^6/uL (4.0-5.20); Red Cell Distribution Width 14.7 % (11.8-14.3); White Blood Cell 4.5 10^3/uL (4.4-10.8)
[2023-10-05] MEDS ORDERED: NITROGLYCERIN 0.4 MG SL TAB SL ONE (14:00)
[2023-10-05] MEDS ORDERED: ASPirin 325 MG TAB PO ONE (14:00)
[2023-10-05 14:13] LABS: Urine Bacteria NONE SEEN /hpf (None Seen); Urine Blood Negative /uL (Negative); Urine Clarity Clear (Clear); Urine Protein, UAD Negative (Negative); Urine Specific Gravity 1.003 (1.001-1.035); Urine Urobilinogen Normal (Negative); Urine pH 5.5 (5.0-8.0)
[2023-10-05 14:14] LABS: Urine Color Yellow (Yellow)
[2023-10-05 14:52] LABS: Alanine Aminotransferase 27 U/L (7-40); Albumin 4.6 g/dL (3.2-4.8); Alkaline Phosphatase 102 U/L (46-116); Anion Gap 7 (5-15); Aspartate Aminotransferase 33 U/L (13-40); BUN/Creatinine Ratio 11.8 (10.0-20.0); Bilirubin, Total 0.4 mg/dL (0.2-1.0); Blood Urea Nitrogen 10 mg/dL (9-23); Calcium 10.1 mg/dL (8.5-10.1); Carbon Dioxide 27 mmol/L (20-30); Chloride 103 mmol/L (98-107); Creatine Kinase IFCC 92 U/L (34-145); Glucose 59 mg/dL (74-106); Potassium 3.3 mmol/L (3.5-5.1); Sodium 137 mmol/L (136-145); Total Protein 7.6 g/dL (5.7-8.2)
[2023-10-05 15:15] LABS: COVID19 ANTIGEN SOFIA FIA NEGATIVE (NEGATIVE)
[2023-10-05 15:17] LABS: Rapid Influenza A Negative (Negative); Rapid Influenza B Negative (Negative)
[2023-10-05] MEDS ORDERED: DEXTROSE (50%) 50ML SYRG IV ONE (15:30)
[2023-10-05 18:46] VITALS: PULSE 61; RESP 12; O2SAT 100
[2023-10-05 19:59] VITALS: PULSE 66; RESP 20; O2SAT 96
[2023-10-05] MEDS ORDERED: HYDROcodone-ACET 5/325MG TAB PO ONE (20:15)
[2023-10-05] MEDS ORDERED: hydrALAZINE HCL 20 MG/ML VL IV ONE (20:15)
[2023-10-05] MEDS ORDERED: ONDANSETRON HCL 4 MG/2 ML VIAL IV ONE (22:30)
[2023-10-05] MEDS ORDERED: HYDROmorphone HCL 2 MG/ML VL/or syr IV ONE (22:30)
[2023-10-05] MEDS ORDERED: DOCUSATE SOD 100 MG CAP PO PRN (23:15)
[2023-10-05] MEDS ORDERED: MORPHINE SULFATE INJ 2 MG/ml SYRG IV PRN (23:15)
[2023-10-05] MEDS ORDERED: ONDANSETRON HCL 4 MG/2 ML VIAL IV PRN (23:15)
[2023-10-05] MEDS ORDERED: NITROGLYCERIN 0.4 MG SL TAB SL PRN (23:15)
[2023-10-05] MEDS ORDERED: ACETAMINOPHEN 325 MG TAB PO PRN (23:15)
[2023-10-05] MEDS ORDERED: ALBUTEROL MEDNEB 2.5 mg/3ml NEB NEB PRN (23:30)
[2023-10-05] MEDS ORDERED: guaiFENesin 200 MG/10 ML UD GT PRN (23:30)
[2023-10-05] MEDS ORDERED: POTASSIUM EFFERVESENT TAB 25 MEQ PO ONE (23:30)
[2023-10-06] VITALS (10 sets, daily range): BP systolic 137–155; BP diastolic 79–100; PULSE 73–90; RESP 12–24; TEMP 97.9–98.4; O2SAT 94–98
[2023-10-06] MEDS: LEVALBUTEROL HCL 1.25 MG/3 ML NEB NEB SCH ×2 (02:00→07:31)
[2023-10-06 03:46] LABS: Basophils # (auto) 0.1 10 ^3/uL (0-0.2); Basophils % (auto) 1.6 % (0.0-2.0); Eosinophils # (auto) 0.1 10 ^3/uL (0-0.8); Eosinophils % (auto) 1.8 % (0.0-7.0); Hematocrit 41.1 % (36.0-46.0); Hemoglobin 13.6 g/dL (12.2-16.2); Lymphocytes # (auto) 1.4 10 ^3/uL (0.4-5.4); Mean Corpuscular Hemoglobin 28.9 pg (28.0-32.0); Mean Corpuscular Hgb Conc. 33.1 g/dL (32.0-36.0); Mean Corpuscular Volume 87.1 fL (80.0-100.0); Monocytes # (auto) 0.4 10 ^3/uL (0-1.3); Neutrophils # (auto) 3.5 10 ^3/uL (1.6-8.6); Neutrophils % (auto) 64.6 % (37.0-80.0); Nucleated Red Blood Cells % 0.1 %; Red Blood Cells 4.71 10^6/uL (4.0-5.20); Red Cell Distribution Width 14.8 % (11.8-14.3); White Blood Cell 5.4 10^3/uL (4.4-10.8)
[2023-10-06 03:48] LABS: Alanine Aminotransferase 27 U/L (7-40); Albumin 4.2 g/dL (3.2-4.8); Alkaline Phosphatase 90 U/L (46-116); Anion Gap 8 (5-15); Aspartate Aminotransferase 25 U/L (13-40); BUN/Creatinine Ratio 12.4 (10.0-20.0); Bilirubin, Total 0.7 mg/dL (0.2-1.0); Blood Urea Nitrogen 11 mg/dL (9-23); Calcium 9.4 mg/dL (8.7-10.4); Carbon Dioxide 29 mmol/L (20-30); Chloride 102 mmol/L (98-107); Glucose 99 mg/dL (74-106); Potassium 3.7 mmol/L (3.5-5.1); Sodium 139 mmol/L (136-145); Total Protein 6.9 g/dL (5.7-8.2)
[2023-10-06] MEDS: hydrALAZINE HCL 20 MG/ML VL IV PRN (06:34)
[2023-10-06] MEDS ORDERED: METHIMAZOLE 10 MG PO SCH (10:00)
[2023-10-06] MEDS ORDERED: PATIENTS OWN MEDICATION (Hydrochlorothiazide 25 MG) PO SCH (10:00)
[2023-10-06] MEDS: methIMAzole 5 MG TAB PO SCH ×2 (10:06→21:15)
[2023-10-06] MEDS: hydroCHLOROthiazide 25 MG TAB PO SCH (10:06)
[2023-10-06] MEDS: POTASSIUM CHLORIDE 8 MEQ TAB PO SCH (10:06)
[2023-10-06] MEDS: HYDROcodone-ACET 5/325MG TAB PO SCH ×2 (10:06→21:16)
[2023-10-06] MEDS: ENOXAPARIN SOD 40 MG/0.4 ML SYRINGE SC SCH (10:07)
[2023-10-06] MEDS: LISINOPRIL 10 MG TAB PO SCH (10:07)
[2023-10-06] MEDS ORDERED: POTA10TA51 PO (10:41)
[2023-10-06] MEDS ORDERED: ZOLP12.569 PO (10:41)
[2023-10-06] MEDS ORDERED: AMLO1TAB22 PO (10:41)
[2023-10-06] MEDS: HYDROmorphone HCL 2 MG/ML VL/or syr IV PRN ×2 (11:50→21:22)
[2023-10-06] MEDS ORDERED: PATIENTS OWN MEDICATION (Zolpidem Tartrate (Ambien) 1 TAB) PO SCH (18:00)
[2023-10-06] MEDS: ZOLPIDEM TARTRATE 5 MG TAB PO SCH (21:22)
[2023-10-07] VITALS (10 sets, daily range): BP systolic 136–162; BP diastolic 77–89; PULSE 66–79; RESP 18–19; TEMP 97.9–98.4; O2SAT 94–100
[2023-10-07] MEDS ORDERED: LEVALBUTEROL HCL 1.25 MG/3 ML NEB NEB PRN (08:30)
[2023-10-07] MEDS: POTASSIUM CHLORIDE 8 MEQ TAB PO SCH (09:22)
[2023-10-07] MEDS: methIMAzole 5 MG TAB PO SCH ×2 (09:22→21:59)
[2023-10-07] MEDS: HYDROcodone-ACET 5/325MG TAB PO SCH ×2 (09:25→21:46)
[2023-10-07] MEDS: ENOXAPARIN SOD 40 MG/0.4 ML SYRINGE SC SCH (09:25)
[2023-10-07] MEDS: LISINOPRIL 10 MG TAB PO SCH (09:27)
[2023-10-07] MEDS: HYDROmorphone HCL 2 MG/ML VL/or syr IV PRN ×2 (09:27→21:46)
[2023-10-07] MEDS: hydroCHLOROthiazide 25 MG TAB PO SCH (09:28)
[2023-10-07] MEDS: ZOLPIDEM TARTRATE 5 MG TAB PO SCH (21:46)
[2023-10-07] MEDS: hydrALAZINE HCL 20 MG/ML VL IV PRN (21:59)
[2023-10-08 05:00] VITALS: BP 157/97; PULSE 85; RESP 19; TEMP 98; O2SAT 96
[2023-10-08] MEDS: hydrALAZINE HCL 20 MG/ML VL IV PRN ×2 (05:25→11:46)
[2023-10-08 08:00] VITALS: PULSE 92; PULSE 95; RESP 18; O2SAT 100
[2023-10-08] MEDS: ENOXAPARIN SOD 40 MG/0.4 ML SYRINGE SC SCH (08:48)
[2023-10-08] MEDS: methIMAzole 5 MG TAB PO SCH (08:48)
[2023-10-08] MEDS: POTASSIUM CHLORIDE 8 MEQ TAB PO SCH (08:49)
[2023-10-08] MEDS: LISINOPRIL 10 MG TAB PO SCH (08:49)
[2023-10-08] MEDS: hydroCHLOROthiazide 25 MG TAB PO SCH (08:49)
[2023-10-08] MEDS: HYDROcodone-ACET 5/325MG TAB PO SCH (08:50)
[2023-10-08] MEDS: HYDROmorphone HCL 2 MG/ML VL/or syr IV PRN (08:50)
[2023-10-08 09:00] VITALS: BP 153/86; PULSE 91; RESP 18; TEMP 97.6; O2SAT 100
[2023-10-08 09:20] VITALS: RESP 18
[2023-10-08 10:00] VITALS: O2SAT 100
[2023-10-08] MEDS ORDERED: LISI20TA56 PO (12:25)
[2023-10-08 12:30] VITALS: BP 151/94; PULSE 91
== END 2023-10-08 14:55 | disposition home or self-care (01) | DRG 305 ==
LOC: ER 12:25 → TELE 23:17 → TELE-WESTW 10-06 09:28
PROVIDERS: ADMIT Nurse Practitioner Family; ATTEND Family Medicine
DX: I16.0 Hypertensive urgency (principal); I67.4 Hypertensive encephalopathy; E05.90 Thyrotoxicosis, unspecified without thyrotoxic crisis or storm; I10 Essential (primary) hypertension; Z20.822 Contact with and (suspected) exposure to COVID-19; E03.9 Hypothyroidism, unspecified; Z86.718 Personal history of other venous thrombosis and embolism; Z87.440 Personal history of urinary (tract) infections; Z90.49 Acquired absence of other specified parts of digestive tract; Z88.6 Allergy status to analgesic agent
CPT/HCPCS: 36415; 70450; 71045; 80053; 81001; 82550; 82962; 83605; 84484; 85025; 86308; 87426; 87804; 93005; 93306; 99291; G0378; J2405; J3490

== ENCOUNTER 2024-03-24 23:20 | Emergency (ER) | payer MEDICARE, MEDICAID ==
[~2024-03-24] VITALS: Ht 160 cm; Wt 81.0 kg
[~2024-03-24 23:20] MED LIST changes: +AMLO1TAB22 PO; -AMOX875T4 PO; -APIX5TAB4 PO; -DOXY1CAP57 PO; -HYDR-4297 PO; -HYDR-4833 PO; -HYDR2TAB58 PO; -LISI10TA34 PO; +LISI20TA56 PO; +POTA-36 PO; -POTA10TA51 PO; -POTA1TAB64 PO; -PRED20TA2 PO; -PROM1SOL4 PO; -TRAM-297 PO; +ZOLP12.569 PO
[2024-03-25 02:26] VITALS: BP 195/104; PULSE 56; RESP 20; TEMP 98.1; O2SAT 98
[2024-03-25] MEDS: KETOROLAC TROMETH 60MG/2ML VIAL IM ONE (02:33)
== END 2024-03-25 02:47 | disposition home or self-care (01) ==
LOC: ER 23:20
DX: M79.601 Pain in right arm (principal); I10 Essential (primary) hypertension; I82.621 Acute embolism and thrombosis of deep veins of right upper extremity; Z88.6 Allergy status to analgesic agent; Z90.49 Acquired absence of other specified parts of digestive tract
CPT/HCPCS: 93971; 96372; 99285; J1885

== ENCOUNTER 2024-04-08 23:27 | Emergency (ER) | payer MEDICARE, MEDICAID ==
[~2024-04-08] VITALS: Ht 160 cm; Wt 178.0 kg
[2024-04-09] MEDS: MORPHINE SULFATE 4 MG/ML SYR/VIAL IV ONE (01:06)
[2024-04-09] MEDS: KETOROLAC TROMETH 30 MG/ML 1ML VIAL IV ONE (01:09)
[2024-04-09] MEDS: ONDANSETRON HCL 4 MG/2 ML VIAL IV ONE (01:09)
[2024-04-09] MEDS: SODIUM CHLORIDE 0.9% 1,000 ML IVB ONE (01:11)
[2024-04-09 01:15] LABS: Alanine Aminotransferase 18 U/L (7-40); Albumin 4.6 g/dL (3.2-4.8); Alkaline Phosphatase 73 U/L (46-116); Anion Gap 10 (5-15); Aspartate Aminotransferase 15 U/L (13-40); BUN/Creatinine Ratio 15.7 (10.0-20.0); Basophils # (auto) 0.1 10 ^3/uL (0-0.2); Basophils % (auto) 1.1 % (0.0-2.0); Blood Urea Nitrogen 16 mg/dL (9-23); Calcium 10.3 mg/dL (8.7-10.4); Carbon Dioxide 26 mmol/L (20-30); Chloride 104 mmol/L (98-107); Eosinophils # (auto) 0.1 10 ^3/uL (0-0.8); Eosinophils % (auto) 1.9 % (0.0-7.0); Glucose 95 mg/dL (74-106); Hematocrit 41.9 % (36.0-46.0); Hemoglobin 13.7 g/dL (12.2-16.2); Lipase 28 U/L (12-53); Lymphocytes # (auto) 1.4 10 ^3/uL (0.4-5.4); Lymphocytes % (auto) 20.8 % (10.0-50.0); Magnesium 1.8 mg/dL (1.6-2.6); Mean Corpuscular Hemoglobin 28.7 pg (28.0-32.0); Mean Corpuscular Hgb Conc. 32.8 g/dL (32.0-36.0); Mean Corpuscular Volume 87.6 fL (80.0-100.0); Monocytes # (auto) 0.4 10 ^3/uL (0-1.3); Monocytes % (auto) 6.7 % (0.0-12.0); Neutrophils # (auto) 4.5 10 ^3/uL (1.6-8.6); Neutrophils % (auto) 69.5 % (37.0-80.0); Nucleated Red Blood Cells % 0.1 %; Potassium 2.9 mmol/L (3.5-5.1); Red Blood Cells 4.78 10^6/uL (4.0-5.20); Red Cell Distribution Width 14.7 % (11.8-14.3); Sodium 140 mmol/L (136-145); White Blood Cell 6.5 10^3/uL (4.4-10.8)
[2024-04-09 01:16] LABS: Bilirubin, Total 0.6 mg/dL (0.2-1.0); Total Protein 7.7 g/dL (5.7-8.2)
[2024-04-09 01:29] LABS: Lactic Acid w/Reflex 2.2 mmol/L (0.4-2.0)
[2024-04-09 01:40] LABS: INR 1.05 (0.9-1.15); Partial Thromboplastin Time 29.3 SEC (24.5-34.5); Prothrombin Time 11.1 sec (9.3-11.8)
[2024-04-09 01:58] VITALS: BP 130/79; PULSE 64; RESP 16; TEMP 98.2; O2SAT 98
[2024-04-09] MEDS ORDERED: METR-344 PO (04:25)
[2024-04-09] MEDS ORDERED: LEVO500T91 PO (04:27)
[2024-04-09] MEDS ORDERED: ZOFR4T PO (04:27)
== END 2024-04-09 04:23 | disposition home or self-care (01) ==
LOC: ER 23:27
DX: E87.6 Hypokalemia (principal); A08.4 Viral intestinal infection, unspecified; E86.0 Dehydration; I10 Essential (primary) hypertension; Z90.49 Acquired absence of other specified parts of digestive tract; Z87.440 Personal history of urinary (tract) infections; Z88.6 Allergy status to analgesic agent
CPT/HCPCS: 36415; 74176; 80053; 83605; 83690; 83735; 84484; 85025; 85610; 85730; 96361; 96374; 96375; 99285; J1885; J2405; J7030